=== PATIENT | female | born 1980 | race American Indian/Alaskan Native ===

== ENCOUNTER 2016-10-06 12:00 | Observation (INO) | payer MEDICAID, OTHER ==
[2016-10-06 12:00] VITALS: BMI 37.0
[2016-10-06 12:19] VITALS: RESP 16; TEMP 98.4
[2016-10-06] MEDS ORDERED: cefTRIAXone 1 gm 100 ML IVPB STA (12:32)
[2016-10-06] MEDS ORDERED: Vancomycin 1gm in NS 250ml 250 ML IVPB STA (12:33)
--- NOTE | 2016-10-06 12:38 | ED PDOC ---
Arrival/HPI - General Chief Complaint: Abnormal Skin Integrity Time Seen by Provider: 10/06/16 12:19 Historian: Patient - History of Present Illness Narrative History of Present Illness (Text): 10/06/16 12:34 36yo female with no PMHx present with right lower leg infection. States it started as a itch to the area over the weekend. It then became an abscess yesterday and drained. Today it became red, swollen and extremely painful, per patient. she did not take any medication. She denies fever, chills, any other complaint. Past Medical History - Provider Review Nursing Documentation Reviewed: Yes - Past History Past History: Non-Contributing - Infectious Disease Hx of Infectious Diseases: None - Tetanus Immunization Tetanus Immunization: Unknown - Cardiac Hx Cardiac Disorders: No - Pulmonary Hx Respiratory Disorders: No - Neurological Hx Neurological Disorder: No - HEENT Hx HEENT Disorder: No - Renal Hx Renal Disorder: No - Endocrine/Metabolic Hx Endocrine Disorders: No - Hematological/Oncological Hx Blood Disorders: No - Integumentary Hx Dermatological Disorder: No - Musculoskeletal/Rheumatological Hx Musculoskeletal Disorders: No - Gastrointestinal Hx Gastrointestinal Disorders: No - Genitourinary/Gynecological Hx Genitourinary Disorders: No - Psychiatric Hx Psychophysiologic Disorder: No Hx Substance Use: No - Surgical History Other/Comment: BOIL DRAINED - Anesthesia Hx Anesthesia: No Hx Anesthesia Reactions: No Hx Malignant Hyperthermia: No Family/Social History - Physician Review Nursing Documentation Reviewed: Yes Family/Social History: Unknown Family HX Smoking Status: Former Smoker Hx Alcohol Use: Yes Frequency of alcohol use: Socially Hx Substance Use: No Allergies/Home Meds Allergies/Adverse Reactions: Allergies No Known Allergies Allergy (Verified 10/06/16 12:13) Review of Systems - Physician Review All systems were reviewed & negative as marked: Yes - Review of Systems Constitutional: Normal Eyes: Normal ENT: Normal Respiratory: Normal Cardiovascular: Normal Gastrointestinal: Normal Genitourinary Female: Normal Musculoskeletal: Normal Skin: Abscess, Cellulitis Neurological: Normal Endocrine: Normal Hemo/Lymphatic: Normal Psychiatric: Normal Physical Exam Vital Signs Reviewed: Yes Vital Signs Temp Pulse Resp BP Pulse Ox 10/06/16 13:46 69 16 119/64 100 10/06/16 12:14 98.4 F 83 16 120/77 99 Temperature: Afebrile Blood Pressure: Normal Pulse: Regular Respiratory Rate: Normal Appearance: Positive for: Well-Appearing, Non-Toxic, Comfortable Pain Distress: None Mental Status: Positive for: Alert and Oriented X 3 - Systems Exam Head: Present: Atraumatic, Normocephalic Pupils: Present: PERRL Extroacular Muscles: Present: EOMI Conjunctiva: Present: Normal Mouth: Present: Moist Mucous Membranes Neck: Present: Normal Range of Motion Respiratory/Chest: Present: Clear to Auscultation, Good Air Exchange. No: Respiratory Distress, Accessory Muscle Use Cardiovascular: Present: Regular Rate and Rhythm, Normal S1, S2. No: Murmurs Abdomen: Present: Normal Bowel Sounds. No: Tenderness, Distention, Peritoneal Signs Back: Present: Normal Inspection Upper Extremity: Present: Normal Inspection. No: Cyanosis, Edema Lower Extremity: Present: Normal Inspection. No: Edema Neurological: Present: GCS=15, CN II-XII Intact, Speech Normal Skin: Present: Warm, Dry, Normal Color, Other (Wound noted on right lateral lower leg with surrounding erythema, swelling, tenderness to palpation). No: Rashes Psychiatric: Present: Alert, Oriented x 3, Normal Insight, Normal Concentration Medical Decision Making ED Course and Treatment: 10/06/16 16:59 PT presented for stated history. She was afebrile. Have no PMHx. Hemodynamically stable. Lab was unremarkable. She was given abx in ED and will be DC home with oral abx. Case was DW Dr. Machado. States pt should f/u her on Sunday. Plan was DW the pt. She was advised TRT ED for any new or worsening symptoms. - Lab Interpretations Lab Results: 10/06/16 12:45 10/06/16 12:45 Lab Results 10/06/16 12:45: WBC 8.4, RBC 4.68, Hgb 12.8, Hct 37.0, MCV 79.1 L, MCH 27.4, MCHC 34.6, RDW 14.7 H, Plt Count 243, MPV 10.5, Gran % 72.7 H, Lymph % (Auto) 19.6 L, [place] % (Auto) 5.8, Eos % (Auto) 1.4 L, Baso % (Auto) 0.5, Gran # 6.09, Lymph # 1.6, [place] # 0.5, Eos # 0.1, Baso # 0.04, Sodium 139, Potassium 4.2, Chloride 105, Carbon Dioxide 24, Anion Gap 14, BUN 12, Creatinine 0.7, Est GFR ( Amer) > 60, Est GFR (Non-Af Amer) > 60, Random Glucose 95, Calcium 9.1, Total Bilirubin 0.6, AST 27, ALT 16, Alkaline Phosphatase 75, Total Protein 7.5 , Albumin 4.0, Globulin 3.6, Albumin/Globulin Ratio 1.1 - Medication Orders Current Medication Orders: Discontinued Medications Ceftriaxone Sodium (Rocephin 1 Gram Ivpb) 100 mls @ 200 mls/hr IVPB STAT STA PRN Reason: Protocol Stop: 10/06/16 13:01 Last Admin: 10/06/16 12:57 Dose: 200 MLS/HR eMAR Start Stop Document 10/06/16 12:57 EDILMA (Rec: 10/06/16 12:58 [facility] [id number]) Intravenous Solution Start Date 10/06/16 Start Time 12:57 Vancomycin HCl (Vancomycin 1gm) 250 mls @ 167 mls/hr IVPB STAT STA PRN Reason: Protocol Stop: 10/06/16 14:02 Last Admin: 10/06/16 13:30 Dose: 167 MLS/HR eMAR Start Stop Document 10/06/16 13:30 [facility] (Rec: 10/06/16 13:31 [id number]) Intravenous Solution Start Date 10/06/16 Start Time 13:31 End Date 10/06/16 End time 15:00 Total Infusion Time 89 Ketorolac Tromethamine (Toradol) 30 mg IVP STAT STA Stop: 10/06/16 12:33 Last Admin: 10/06/16 12:58 Dose: 30 MG IVP Administration Document 10/06/16 12:58 EDILMA (Rec: 10/06/16 12:58 [facility] [id number]) Charges for Administration # of IVP Administrations 1 ED OBSERVATION Discharge: Yes Date of observation admission: 10/06/16 Time of observation admission: 13:30 - Observation admission statement Patient is being placed in observation because:: Lab was ordered Vancomycin, Toradol and Rocephin ordered Will re evaluate - Goals of Observation Goals of observation are:: Lab was ordered Vancomycin, Toradol and Rocephin ordered Will re evaluate Disposition/Present on Arrival - Present on Arrival Any Indicators Present on Arrival: No History of DVT/PE: No History of Uncontrolled Diabetes: No Urinary Catheter: No History of Decub. Ulcer: No History Surgical Site Infection Following: None - Disposition Have Diagnosis and Disposition been Completed?: Yes Diagnosis: Cellulitis and abscess of foot Disposition: HOME/ ROUTINE Disposition Time: 15:00 Patient Plan: Discharge Patient Problems: Current Active Problems Problem Status Diagnosed Cellulitis and abscess of foot Acute Condition: STABLE
[2016-10-06 13:01] LABS: ADD MANUAL DIFF? NO
[2016-10-06 13:07] LABS: BASO # 0.04 K/mm3 (0.0-2.0); BASO % 0.5 % (0.0-3.0); EOS # 0.1 (0.0-0.7); EOS % 1.4 % (1.5-5.0); GRAN # 6.09 (1.4-6.5); GRAN % 72.7 % (50.0-68.0); LYMPH # 1.6 (1.2-3.4); LYMPH % 19.6 % (22.0-35.0); MEAN CELL VOLUME 79.1 fL (80.0-105.0); MEAN CORPUSCULAR HEMOGLOBIN 27.4 pg (25.0-35.0); MEAN CORPUSCULAR HGB CONC 34.6 g/dl (31.0-37.0); MEAN PLATELET VOLUME 10.5 fl (7.0-11.0); MONO # 0.5 (0.1-0.6); MONO % 5.8 % (1.0-6.0); PLATELET COUNT 243 10^3/uL (120.0-450.0); RED CELL DISTRIBUTION WIDTH 14.7 % (11.5-14.5); WHITE BLOOD COUNT 8.4 10^3/ul (4.5-11.0)
[2016-10-06 13:15] LABS: ALB/GLOB RATIO 1.1 (1.1-1.8); ALKALINE PHOSPHATASE 75 U/L (38-133); ALT/SGPT 16 U/L (7-56); AST/SGOT 27 U/L (15-39); BILIRUBIN,TOTAL 0.6 mg/dL (0.2-1.3); BLOOD UREA NITROGEN 12 mg/dL (7-21); CALCIUM 9.1 mg/dL (8.4-10.5); CARBON DIOXIDE 24 mmol/L (21-33); CHLORIDE 105 mmol/L (98-107); GFR AFRICAN-AMERICAN > 60; GLUCOSE,RANDOM 95 mg/dL (70-110); POTASSIUM 4.2 mmol/L (3.6-5.0); SODIUM 139 mmol/L (132-148); TOTAL PROTEIN 7.5 g/dL (5.8-8.3)
[2016-10-06 13:46] VITALS: BP 119/64; PULSE 69; O2SAT 100
== END 2016-10-06 16:57 | disposition home or self-care (01) ==
LOC: ED 12:00 → EROBSV 13:31
PROVIDERS: ADMIT Emergency Medicine; ATTEND Emergency Medicine
DX: L03.115 Cellulitis of right lower limb (principal); L02.611 Cutaneous abscess of right foot
CPT/HCPCS: 80053; 85025; 87040; 96365; 96374; 99283; G0378; J0696; J1885

== ENCOUNTER 2016-10-15 15:27 | Emergency (ER) | payer MEDICAID, OTHER ==
[2016-10-15 15:34] VITALS: BMI 37.7
[2016-10-15 15:41] VITALS: BP 113/64; PULSE 86; TEMP 98.4
--- NOTE | 2016-10-15 16:52 | ED PDOC ---
Arrival/HPI - General Chief Complaint: Wound Check Time Seen by Provider: 10/15/16 15:49 Historian: Patient - History of Present Illness Narrative History of Present Illness (Text): 10/15/16 16:54 36 y.o. female who was seen here on 10/06 for a right leg cellulitis and abscess that may have drained; she was given a script for bactrim and cleocin. She came to the ED because she accidentally threw out one of her antibiotics. She had already taken nearly nine days of it. No fever. She is however complaining that the wound is still swollen and painful. Time/Duration: > week Past Medical History - Past History Past History: Non-Contributing - Infectious Disease Hx of Infectious Diseases: None - Tetanus Immunization Tetanus Immunization: Unknown - Cardiac Hx Cardiac Disorders: No - Pulmonary Hx Respiratory Disorders: No - Neurological Hx Neurological Disorder: No - HEENT Hx HEENT Disorder: No - Renal Hx Renal Disorder: No - Endocrine/Metabolic Hx Endocrine Disorders: No - Hematological/Oncological Hx Blood Disorders: No - Integumentary Hx Dermatological Disorder: No - Musculoskeletal/Rheumatological Hx Musculoskeletal Disorders: No - Gastrointestinal Hx Gastrointestinal Disorders: No - Genitourinary/Gynecological Hx Genitourinary Disorders: No - Psychiatric Hx Psychophysiologic Disorder: No Hx Substance Use: No - Surgical History Other/Comment: BOIL DRAINED - Anesthesia Hx Anesthesia: No Hx Anesthesia Reactions: No Hx Malignant Hyperthermia: No Family/Social History Family/Social History: No Known Family HX Smoking Status: Former Smoker Hx Alcohol Use: Yes Hx Substance Use: No Allergies/Home Meds Allergies/Adverse Reactions: Allergies No Known Allergies Allergy (Verified 10/06/16 12:13) Review of Systems - Review of Systems Constitutional: absent: Fevers Skin: Other (R leg wound) Physical Exam - Physical Exam Narrative Physical Exam (Text): 10/15/16 17:00 Head: NC/AT Resp: no resp distress R leg: distal lateral leg with scabbed wound and pus draining. See wound care in the ED. Vital Signs Temp Pulse Resp BP Pulse Ox 10/15/16 15:28 98.4 F 86 16 113/64 99 Temperature: Afebrile Blood Pressure: Normal Pulse: Regular Respiratory Rate: Normal Appearance: Positive for: Well-Appearing, Non-Toxic, Comfortable Pain Distress: None Mental Status: Positive for: Alert and Oriented X 3 Medical Decision Making ED Course and Treatment: 10/15/16 17:02 Patient with noted history with wound that is still draining, concerning for abscess or ulcer. Wound Care: Patient given local anesthesia with lidocaine with epi; 11-blade used for dab incision at area of drainage for reported abscess. Pus exuded, however once incision was made, area was very hollow under scab. When superficial scab was unroofed, it appeared patient had an ulcerated wound, slightly bigger than a dime, as opposed to an abscess. Wound was irrigated and wet-to-dry dressing was placed. 10/15/16 17:05 Patient d/c on antibiotics (bactrim and keflex) and instructed to follow up with podiatry wound clinic and medical clinic. Disposition/Present on Arrival - Present on Arrival Any Indicators Present on Arrival: No History of DVT/PE: No History of Uncontrolled Diabetes: No Urinary Catheter: No History of Decub. Ulcer: No History Surgical Site Infection Following: None - Disposition Have Diagnosis and Disposition been Completed?: Yes Diagnosis: Wound of right leg Disposition: HOME/ ROUTINE Disposition Time: 16:50 Patient Plan: Discharge Patient Problems: Current Active Problems Problem Status Diagnosed Wound of right leg Acute Condition: GOOD Additional Instructions: Do the wet-to-dry dressings of the wound as instructed. Take the antibiotics as prescribed. Follow up with the wound/podiatry clinic and medical clinic. Return to the emergency department if any new concerning symptoms. Prescriptions: Sulfamethoxazole/Trimethoprim [Bactrim DS 800 mg-160 mg] 2 tab PO BID #40 tab Cephalexin [Keflex] 500 mg PO TID #30 cap Referrals: Lisa Morales MD [Primary Care Provider] - Follow up with primary Stephanie Urbina DPM [Staff Provider] - Follow up with primary [facility] at [facility] [place] [Outside] - Follow up with primary
[2016-10-15 16:57] VITALS: RESP 18; O2SAT 98
== END 2016-10-15 16:57 | disposition home or self-care (01) ==
LOC: ED 15:27
DX: S81.801A Unspecified open wound, right lower leg, initial encounter (principal); Z87.891 Personal history of nicotine dependence; X58.XXXA Exposure to other specified factors, initial encounter

== ENCOUNTER 2018-05-05 22:28 | Emergency (ER) | payer OTHER, MEDICAID ==
[2018-05-05 22:28] VITALS: BMI 29.2
[2018-05-05 22:47] VITALS: TEMP 98.5; O2SAT 100
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
[2018-05-05 23:40] VITALS: BP 123/78; PULSE 70; RESP 18
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
== END 2018-05-05 23:49 | disposition home or self-care (01) ==
LOC: ED 22:28
DX: M54.5 Low back pain (principal); Z87.891 Personal history of nicotine dependence
CPT/HCPCS: 72110; 96372; 99281; J1885

== ENCOUNTER 2018-08-28 17:41 | Outpatient (CLI) | payer MEDICAID | END 2018-08-28 17:42 | disposition home or self-care (01) | LOC: RAD 17:41 ==